=== PATIENT | male | born 1950 | race Two or more races ===

== ENCOUNTER 2017-12-20 07:33 | Day surgery (SDC) | payer OTHER ==
[2017-12-20] VITALS (11 sets, daily range): BP systolic 117–157; BP diastolic 70–96
[~2017-12-20] VITALS: Ht 170.2 cm; Wt 74.8 kg
--- NOTE | 2017-12-20 06:51 | Anethesia Preoperative Eval ---
Anesthesia Pre-op PMH/ROS General Date of Evaluation: Dec 20, 2017 Time of Evaluation: 06:48 Anesthesiologist: virginia ASA Score: ASA 3 Mallampati Score Class I : Soft palate, uvula, fauces, pillars visible Class II: Soft palate, uvula, fauces visible Class III: Soft palate, base of uvula visible Class IV: Only hard plate visible Mallampati Classification: Class II Surgeon: lenka Diagnosis: gerd, gastritis, abdominal pain Surgical Procedure: egd Anesthesia History: none Social History: smoking - nonsmoker Family History: no anesthesia problems Allergies: Coded Allergies: LISINOPRIL (Verified Adverse Reaction, Severe, Severe cough , 12/19/17) Medications: see eMAR Past Medical History Cardiovascular: Reports: HTN Gastrointestinal/Genitourinary: Reports: GERD Neurologic/Psychiatric: Reports: CVA, depression/anxiety, other - parkinson's disease Endocrine: Reports: DM, hypothyroidism HEENT: Reports: cataract (R), [place] (L), other - macular degeneration Anesthesia Pre-op Phys. Exam Physician Exam Constitutional: NAD Neurologic: CN 2-12 intact Cardiovascular: RRR Respiratory: CTA Gastrointestinal: S/NT/ND Airway Exam Mallampati Score: Class II MO: full Neck: supple TMD: 2fb ROM: full Dentures: upper - crowns and bridges Anesthesia Pre-op A/P Risk Assessment & Plan Assessment: asa3 Plan: mac Status Change Before Surgery: No Pre-Antibiotics Drug: MAURA Victor Dec 20, 2017 06:50
[~2017-12-20 07:33] MED LIST: AMLODIPINE BESY10 MG ORAL; Atropine Inj 1mg/10ml Syr IV PRN; DiphenhydrAMINE 50mg/ml Inj IVP PRN; ENTACAPONE200 MG PO; GAVISCON EXTRA GT; LEVOTHYROXINE50 MCG ORAL; LOSARTAN POTASS25 MG ORAL; LR 1000ml 1,000 ML IVLG SCH; METAMUCIL0.52 G1 PO; METFORMIN HCL1000 M1 ORAL; METOPROLOL TART25 MG ORAL; Midazolam 2mg/2ml Inj IVP PRN; OMEPRAZOLE20 M2 ORAL; OMEPRAZOLE40 M1 ORAL; SINEMET 25-1001 EAC1 ORAL; TRAMADOL HCL150 MG ORAL; ZOCOR20 M1 ORAL; fentaNYL 100 mcg/2 mL IV PRN
--- NOTE | 2017-12-20 07:51 | Short Stay Surgery H&P ---
History of Present Illness History of Present Illness Chief Complaint Abdominal pains and GERDs symptoms. HPI Jacob White is a 67 year old male who was admitted on for Gerd,Gastritis, Abdominal Pain Patient History Allergies: Coded Allergies: LISINOPRIL (Verified Adverse Reaction, Severe, Severe cough , 12/19/17) PAST MEDICAL HISTORY: Past Surgeries: Social History: Medication History Scheduled Al Hydrox/mg Carbonate (Gaviscon Extra Strength Liquid), 360 ML GT NEEDED, ( Reported) Amlodipine Besylate* (Amlodipine Besylate*), 10 MG ORAL DAILY, (Reported) Entacapone (Entacapone), 200 MG PO TID, (Reported) Levothyroxine Sodium* (Levothyroxine Sodium*), 50 MCG ORAL DAILY, (Reported) Losartan Potassium* (Losartan Potassium*), 25 MG ORAL DAILY, (Reported) Metformin Hcl* (Metformin Hcl*), 1,000 MG ORAL BID, (Reported) Metoprolol Tartrate* (Metoprolol Tartrate*), 25 MG ORAL EVERY 12 HOURS, ( Reported) Omeprazole (Omeprazole), 40 MG ORAL BID, (Reported) Omeprazole (Omeprazole), 20 MG ORAL DAILY, (Reported) Psyllium Husk (Metamucil), 0.52 GM PO DAILY, (Reported) Simvastatin (Zocor), 20 MG ORAL BEDTIME, (Reported) Scheduled PRN Carbidopa/Levodopa 25-100 Mg* (Sinemet 25-100 Mg Tablet*), 2 TAB ORAL for FIVE TIMES PER DAY, (Reported) Tramadol HCl (Tramadol HCl ER), 150 MG ORAL Q6HR PRN for For Pain, (Reported) Review of Systems Cardiovascular: Reports: no symptoms Respiratory: Reports: no symptoms Skeletal: Reports: trauma Gastrointestinal: Reports: gastro esophageal reflux disease Genitourinary: Reports: no symptoms Neurologic: Reports: no symptoms Endocrine: Reports: diabetes - type 2 Hematologic: Reports: no symptoms Physical Exam Skin: normal HENT: normal Heart: normal Lungs: normal Abdomen: abnormal Extremities: normal Genitourinary: normal Plan Plan of Care Upper GI endoscopy and biopsy Preop Interventions None. Summary of Findings See the reports Final Diagnosis: Attestation Are the patient's medical conditions optimized for surgery? Attestation Response: yes ALEX ROSADO Dec 20, 2017 07:51
--- NOTE | 2017-12-20 07:52 | Pre-Procedure Note/Attestation ---
Pre-Procedure Note/Attestation Complete Prior to Procedure Planned Procedure: left Procedure Narrative: Examination of the upper GI tract by endoscopy. Indications for Procedure Pre-Operative Diagnosis: R/O Peptic ulcer, gastritis, Esophagitis Attestation I attest that I discussed the nature of the procedure; its benefits; risks and complications; and alternatives (and the risks and benefits of such alternatives ), prior to the procedure, with the patient (or the patient's legal personal financial representative). I attest that, if there was a reasonable possibility of needing a blood transfusion, the patient (or the patient's legal personal financial representative) was given the [place] [employer] [facility] standardized written summary, pursuant to the Otilio Alcira Blood Safety Act ([place] Health and Safety Code # 1645, as amended). I attest that I re-evaluated the patient just prior to the surgery and that there has been no change in the patient's H&P, except as documented below: ALONZO,SAID Dec 20, 2017 07:52
[2017-12-20] MEDS ORDERED: LR 1000ml ONE (08:00)
[2017-12-20] MEDS ORDERED: Propofol 200mg/20ml IV ONE (08:00)
[2017-12-20] MEDS ORDERED: Lidocaine 1% MPF 10mg/ml 5ml ONE (08:00)
--- NOTE | 2017-12-20 08:28 | Endoscopy Procedure Note ---
Endoscopy Procedure Note General Indication for Procedure: Abdominal pains and GERD Procedures Performed: EGD - Moderate Gastritis, biopsied obtained from gastric body per franco,. Specimen: yes Pt Tolerated Procedure Well: Yes Estimated Blood Loss: none Anesthesia Anesthesiologist: Dr. Ramesh Anesthesia: moderate sedation Medications Medication Given: see anesthesia record Inserted Devices Implant(s) used?: No Quality Quality of Bowel Preparation: Excellent Was there any complications?: No GI Core Measures 50 yrs or older w/o bx or poly: Not Applicable 10yrs. F/U not recommended: Not Applicable If not recommended, why?: Med reason:<3 yrs.: System Reason:<3 yrs.: ALEX ROSADO Dec 20, 2017 08:28
--- NOTE | 2017-12-20 08:31 | Discharge Instructions ---
Discharge Instructions Discharge Instructions Follow up with: See the doctor after 2 weeks in the office For Congestive Heart Failure Reminder Report to your physician any weight gain of 5 pounds or more in one week. ALEX ROSADO Dec 20, 2017 08:31
--- NOTE | 2017-12-20 10:43 | Immediate Post-Op Evaluation ---
Immediate Post-Op Evalulation Immediate Post-Op Evalulation Procedure: egd Date of Evaluation: Dec 20, 2017 Time of Evaluation: 08:45 IV Fluids: 200ml lr Blood Products: none Estimated Blood Loss: negligible Blood Pressure Systolic: 121 Blood Pressure Diastolic: 79 Pulse Rate: 60 Respiratory Rate: 18 O2 Sat by Pulse Oximetry: 99 Temperature (Fahrenheit): 98.0 Pain Score (1-10): 0 Nausea: No Vomiting: No Complications none Patient Status: awake, reacts, patent Hydration Status: adequate Drug: MAURA Victor Dec 20, 2017 10:43
--- NOTE | 2017-12-20 10:45 | 48 Hour Post Anesthesia Eval ---
Post Anesthesia Evaluation Procedure: egd Date of Evaluation: Dec 20, 2017 Time of Evaluation: 08:47 Blood Pressure Systolic: 124 0: 74 Pulse Rate: 59 Respiratory Rate: 18 Temperature (Fahrenheit): 98.0 O2 Sat by Pulse Oximetry: 99 Airway: patent Nausea: No Vomiting: No Pain Intensity: 0 Hydration Status: adequate Cardiopulmonary Status: stable Mental Status/LOC: patient returned to baseline Post-Anesthesia Complications: none Follow-up care needed: N/A MAURA WEINBERG Dec 20, 2017 10:45
--- NOTE | 2017-12-20 16:30 | Operative Note - Dictated ---
DATE OF OPERATION: 12/20/2017 REFERRING PHYSICIAN: Dr. Mclaughlin, he is not on the staff. PROCEDURE: Esophagogastroduodenoscopy with biopsy. SURGEON: Irwin Santos M.D. PREOPERATIVE DIAGNOSES: Dysphagia, epigastric pain, chest pain, rule out peptic ulcer disease, gastritis. POSTOPERATIVE DIAGNOSES: 1. Evidence of moderate bile in the stomach. 2. Moderate gastritis, biopsy was obtained from gastric body. MEDICATION USED: Per Dr. Ramesh, anesthesiologist. INSTRUMENT: GIF Olympus upper GI video endoscope. DESCRIPTION OF PROCEDURE: The patient, after arriving endoscopy unit, was told about risks and benefits of the procedure, which he accepted and signed informed consent. At this time, he was put on the left lateral decubitus position and after adequate IV sedation, the scope was gently passed through the cricopharyngeal area, was lodged into the upper esophagus, and gradually advanced towards gastroesophageal junction. The entire length of the esophagus looked normal and there was no any evidence of inflammatory process, ulceration, stricture, varices, tumors, etc. GE junction also looked normal. No Tapia's or hiatal hernia noted. At this time, the scope was advanced into the stomach. Gastric cavity was distended and there was evidence of moderate amount of bile collected in the body and the fundus of the stomach, which had to be aspirated. Underlying mucosa also revealed evidence of moderate inflammatory process presenting with edema, erythema, and localized congestion of gastric mucosa consistent with moderate gastritis. Generally, there were no ulcers, tumors, or polyps. One random biopsy from gastric body obtained and subsequently, the scope was passed through normal looking pylorus. First and second portions of duodenum were found to be completely normal. At this time, the scope was pulled back into the stomach and retroflexion maneuver was applied and the area of the gastroesophageal junction was examined in a closer fashion and that did not reveal any other abnormalities other than what is stated earlier. Finally, the scope was pulled out and procedure was terminated. The patient tolerated the procedure well, left the endoscopy room in a good condition. Irwin Santos M.D. DR: GAVIN JOB#: [id number] CC:
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
== END 2017-12-20 10:00 | disposition home or self-care (01) ==
LOC: GAS 07:33
DX: K29.50 Unspecified chronic gastritis without bleeding (principal); R07.9 Chest pain, unspecified; I10 Essential (primary) hypertension; E11.9 Type 2 diabetes mellitus without complications; E78.5 Hyperlipidemia, unspecified; G20 Parkinson's disease; Z86.73 Personal history of transient ischemic attack (TIA), and cerebral infarction without residual deficits; Z88.8 Allergy status to other drugs, medicaments and biological substances; Z79.84 Long term (current) use of oral hypoglycemic drugs; F32.9 Major depressive disorder, single episode, unspecified; F41.9 Anxiety disorder, unspecified; E03.9 Hypothyroidism, unspecified
CPT/HCPCS: 43239; 82962; J0360; J2704; J7120; 94003; 94150